=== PATIENT | female | born 1960 | race African-American/Black ===

== ENCOUNTER 2016-07-18 23:48 | Emergency (ER) | payer BC, OTHER ==
[2016-07-19] MEDS ORDERED: oxyCOD/ACETAMIN 5 MG/325 MG TABLET PO STA (00:38)
[2016-07-19] MEDS ORDERED: ONDANSETRON ODT 4 MG TABLET TL STA (00:38)
[2016-07-19] MEDS ORDERED: oxyCOD/ACETAMIN 5 MG/325 MG TABLET PO ONE (00:43)
[2016-07-19] MEDS ORDERED: ONDANSETRON ODT 4 MG TABLET ONE (00:44)
== END 2016-07-19 02:30 | disposition home or self-care (01) ==
DX: G43.109 Migraine with aura, not intractable, without status migrainosus (principal)
CPT/HCPCS: 70450; 99282; 99283; A9270; Q0162

== ENCOUNTER 2016-07-28 | Emergency (ER) | payer BC, OTHER | END 2016-07-28 21:13 | disposition home or self-care (01) ==

== ENCOUNTER 2017-09-09 20:04 | Emergency (ER) | payer BC, OTHER ==
--- NOTE | 2017-09-09 20:31 | ED Physician Documentation ---
PD HPI FOCAL NEURO - Stated complaint Stated Complaint: LT SIDE NUMBNESS - Chief complaint Chief Complaint: Neuro - History obtained from History obtained from: Patient - History of Present Illness Timing - onset: Enter time (07:00) Timing - duration: Hours Timing - details: Abrupt onset Severity of deficit: Mild Numbness: Arm, Hand, Leg, Foot, Right Associated symptoms: Headache (left-sided, resolved) Baseline status: positive: A&OX3, ambulatory, indep Similar symptoms before: Has not had sx before Recently seen: Not recently seen - Additional information Additional information: c/o LUE and LLE paresthesias since 7 AM Review of Systems Constitutional: reports: Reviewed and negative Eyes: reports: Reviewed and negative Cardiac: reports: Reviewed and negative Respiratory: reports: Reviewed and negative GI: reports: Reviewed and negative : denies: Dysuria, Frequency, Incontinent Neurologic: reports: Numbness (pareshthesias), 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 denies : Generalized weakness, Focal weakness, Confused, Altered mental status PD PAST MEDICAL HISTORY - Past Medical History Past Medical History: Yes Cardiovascular: None Respiratory: None Neuro: Headache/migraine Endocrine/Autoimmune: None - Past Surgical History Past Surgical History: Yes General: Cholecystectomy, Appendectomy - Present Medications Home Medications: Ambulatory Orders Medication Instructions Recorded Confirmed No Known Home Medications [No 07/19/16 09/09/17 Known Home Medications] - Allergies Allergies/Adverse Reactions: Allergies Allergy/AdvReac Type Severity Reaction Status Date / Time hydrocodone bitartrate * Allergy Unknown Verified 09/09/17 20:19 [From Vicodin] - Social History Does the pt smoke?: No Smoking Status: Never smoker Does the pt drink ETOH?: Yes Does the pt have substance abuse?: No - Immunizations Immunizations are current?: Yes - POLST Patient has POLST: No PD ED PE NORMAL - Vitals Vital signs reviewed: Yes - General General: Alert and oriented X 3, No acute distress, Well developed/nourished - HEENT HEENT: PERRL, EOMI, Moist mucous membranes - Neck Neck: Supple, no meningeal sign - Cardiac Cardiac: RRR, No murmur - Respiratory Respiratory: No respiratory distress, Clear bilaterally - Abdomen Abdomen: Normal bowel sounds, Soft, Non tender - Derm Derm: Normal color, Warm and dry, No rash - Extremities Extremities: No tenderness to palpate, Normal ROM s pain, No edema - Neuro Neuro: Alert and oriented X 3, branch service representative 2-12 intact, No motor deficit, No sensory deficit, Normal speech Eye Opening: Spontaneous Motor: Obeys Commands Verbal: Oriented GCS Score: 15 NIHSS - Level of Consciousness Level of consciousness: (0) Alert, Keenly responsive LOC Questions: (0) Answers both Q's correct LOC Commands: (0) Performs both correctly - Gaze Best Gaze: (0) Normal - Visual Visual: (0) No loss - Facial Palsy Facial Palsy: (0) Normal, symmetrical movement - Motor Arms (both separate) Motor Arm (right): (0) No drift Motor Arm (left): (0) No drift - Motor Legs (both separate) Motor Leg (right): (0) No drift Motor Leg (left): (0) No drift - Limb Ataxia Limb Ataxia: (0) Absent - Sensory Sensory: (0) Normal - Best Language Best Language: (0) No aphasia - Dysarthria Dysarthria: (0) Normal - Extinction and Inattention (formally neg Extinction and inattention: (0) No abnormality - Total Score/Results Total Score/Result: 0 Results - Vitals Vitals: Oxygen O2 Source Room air - Labs Labs: Laboratory Tests 09/09/17 09/09/17 09/09/17 21:00 21:00 21:00 WBC 7.0 RBC 4.20 Hgb 12.0 Hct 35.8 L MCV 85.2 MCH 28.7 MCHC 33.7 RDW 14.7 Plt Count 321 MPV 7.4 L Neut # 3.5 Lymph # 2.9 Tucker # 0.5 Eos # 0.1 Baso # 0.1 Absolute Nucleated RBC 0.01 Nucleated RBC % 0.1 Sodium 135 Potassium 3.4 L Chloride 102 Carbon Dioxide 25 Anion Gap 8.0 BUN 16 Creatinine 1.0 Estimated GFR (MDRD) 69 L Glucose 99 Calcium 8.9 Troponin I < 0.04 - Rads (name of study) CT head Radiology: Prelim report reviewed, See rad report PD MEDICAL DECISION MAKING - ED course Complexity details: reviewed results, re-evaluated patient, considered differential, d/w patient ED course: subjective paresthesiss on exam, with LTS intact and no significant difference right vs left. Departure - Departure Disposition: 01 Home, Self Care Clinical Impression: Paresthesias, Hypokalemia Condition: Good Instructions: ED Potassium Deficiency, ED Paraesthesias Follow-Up: Shahnaz Perea MD [Primary Care Provider] - Within 1 week Discharge Date/Time: 09/09/17 23:21
[2017-09-09 21:09] LABS: BASOPHILS # (AUTO) 0.1 10^3/uL (0.0-0.1); BASOPHILS % (AUTO) 1.2 %; EOSINOPHILS # (AUTO) 0.1 10^3/uL (0.0-0.7); EOSINOPHILS % (AUTO) 1.9 %; LYMPHOCYTES # (AUTO) 2.9 10^3/uL (1.5-3.5); LYMPHOCYTES % (AUTO) 40.7 %; MEAN CORPUSCULAR HEMOGLOBIN 28.7 pg (27.0-31.0); MEAN CORPUSCULAR HGB CONC 33.7 g/dL (32.0-36.0); MEAN CORPUSCULAR VOLUME 85.2 fL (81.0-99.0); MEAN PLATELET VOLUME 7.4 fL (7.9-10.8); MONOCYTES # (AUTO) 0.5 10^3/uL (0.0-1.0); MONOCYTES % (AUTO) 6.8 %; NEUTROPHILS # (AUTO) 3.5 10^3/uL (1.5-6.6); NEUTROPHILS % (AUTO) 49.4 %; PLT - PLATELET COUNT 321 10^3/uL (130-450); RED CELL DISTRIBUTION WIDTH 14.7 % (12.0-15.0)
--- NOTE | 2017-09-09 21:18 | CT Preliminary Report ---
Exam: CT HEAD W/O IMPRESSION: Negative nonenhanced head CT. [facility] SITE ID: [id number]
--- NOTE | 2017-09-09 21:19 | CT Report ---
EXAM: CT HEAD EXAM DATE: 09/09/2017 09:11 PM. CLINICAL HISTORY: Left-sided numbness. COMPARISON: None. TECHNIQUE: Multiaxial CT images were obtained from the foramen magnum to the vertex. Reformats: Coron al. IV contrast: None. In accordance with CT protocol optimization, one or more of the following dose reduction techniques w ere utilized for this exam: automated exposure control, adjustment of mA and/or KV based on patient s ize, or use of iterative reconstructive technique. FINDINGS: Parenchyma: No intraparenchymal hemorrhage. No evidence of mass, midline shift, or CT findings of inf arction. Mancera-white differentiation is distinct. Extraaxial Spaces: Normal for age. No subdural or epidural collections identified. Ventricles: Normal in size and position. Sinuses and Orbits: Imaged paranasal sinuses, orbits, and mastoids show no significant abnormality. Bones: No evidence of fracture or calvarial defect. Other: None. IMPRESSION: Negative nonenhanced head CT. [facility] Referring Provider Line: [phone] SITE ID: [id number]
[2017-09-09 21:20] LABS: CALCIUM 8.9 mg/dL (8.5-10.3)
[2017-09-09] MEDS ORDERED: POTASSIUM BICARB 25 MEQ TABLET PO STA (23:07)
[2017-09-09 23:13] VITALS: BP 132/78
== END 2017-09-09 23:21 | disposition home or self-care (01) ==
LOC: ED 20:04
DX: R20.0 Anesthesia of skin (principal); E87.6 Hypokalemia
CPT/HCPCS: 36415; 70450; 80048; 84484; 85025; 93005; 99284; A9270

== ENCOUNTER 2019-06-10 13:04 | Emergency (ER) | payer BC ==
[2019-06-10] MEDS ORDERED: KETOROLAC 60 MG/2 ML VIAL IM STA (13:57)
[2019-06-10] MEDS ORDERED: LIDOCAINE PATCH 5% TOP STA (13:57)
[2019-06-10] MEDS ORDERED: diazePAM INJ 5 MG/ML SYRINGE IM STA (13:57)
--- NOTE | 2019-06-10 14:06 | ED Physician Documentation ---
PD HPI BACK PAIN - Stated complaint Stated Complaint: LT SIDE BACK PX - Chief complaint Chief Complaint: Back Pain - History obtained from History obtained from: Patient - History of Present Illness Timing - onset: Today (just prior to arrival) Timing - duration: Hours (1.5) Timing - details: Abrupt onset Severity Comments: severe Location: Lower, Left Associated symptoms: No: Fever Improves with: Rest Worsened by: Movement Contributing factors: Lifting (she was bending down to lift boxes and felt her left lateral low back strain and then couldn't walk afterwards) Similar symptoms before: Diagnosis (hx of low back pain) Recently seen: Not recently seen - Treatment prior to arrival Treatment prior to arrival: none Review of Systems Ten Systems: 10 systems reviewed and negative Constitutional: denies: Fever Cardiac: denies: Chest pain / pressure Respiratory: denies: Dyspnea GI: denies: Abdominal Pain, Nausea, Vomiting : denies: Dysuria, Frequency, Unable to Void, Incontinent, Hematuria Musculoskeletal: reports: Back pain. denies: Extremity pain, Joint pain, Extremity swelling, Joint swelling Neurologic: denies: Generalized weakness, Focal weakness, Numbness Endocrine: reports: Reviewed and negative Immunocompromised: reports: Reviewed and negative PD PAST MEDICAL HISTORY - Past Medical History Past Medical History: Yes Cardiovascular: None Respiratory: None Endocrine/Autoimmune: None Musculoskeletal: Chronic back pain - Past Surgical History Past Surgical History: Yes General: Cholecystectomy, Appendectomy - Present Medications Home Medications: Ambulatory Orders Medication Instructions Recorded Confirmed Lidocaine Patch 5% [Lidoderm Patch] 1 patch TOP DAILY PRN #10 patch 06/10/19 diazePAM [Valium] 5 - 10 mg PO TID PRN #15 tablet 06/10/19 - Allergies Allergies/Adverse Reactions: Allergies Allergy/AdvReac Type Severity Reaction Status Date / Time hydrocodone bitartrate * Allergy Unknown Verified 06/10/19 13:14 [From Vicodin] - Social History Does the pt smoke?: No Smoking Status: Never smoker Does the pt drink ETOH?: Yes Does the pt have substance abuse?: No - Immunizations Immunizations are current?: Yes - POLST Patient has POLST: No PD ED PE NORMAL - Vitals Vital signs reviewed: Yes - General General: Alert and oriented X 3, No acute distress, Well developed/nourished - HEENT HEENT: Atraumatic, Moist mucous membranes - Neck Neck: Supple, no meningeal sign - Cardiac Cardiac: RRR - Respiratory Respiratory: No respiratory distress - Abdomen Abdomen: Soft, Non tender, Non distended - Female Female : Deferred - Rectal Rectal: Deferred - Derm Derm: Normal color, Warm and dry, No rash - Extremities Extremities: No deformity, No tenderness to palpate, Normal ROM s pain, No edema, No calf tenderness / cord - Neuro Neuro: Alert and oriented X 3, No motor deficit, No sensory deficit Eye Opening: Spontaneous Motor: Obeys Commands Verbal: Oriented GCS Score: 15 - Psych Psych: Normal mood, Normal affect PD ED PE EXPANDED - Back Back: Soft tissue tenderness, Other (pain with going from laying to sitting ). 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 She has no red flags for back pain - no hx of cancer, IVDA, no saddle anesthesias, no numbness/weakness, no incontinence, no fever. Given valium, toradol and lidoderm patches for back pain and will reassess. Pt markedly improved, she is able to ambulate around the ED. suspect low back strain. Do not feell that emergent labs or imaging are indicated at this time. Pt is stable for discharge with supportive care and return precautions if worsening. Departure - Departure Disposition: 01 Home, Self Care Clinical Impression: Low back strain Qualifiers: Encounter type: initial encounter Qualified Code(s): S39.012A - Strain of muscle, fascia and tendon of lower back, initial encounter Condition: Stable Record reviewed to determine appropriate education?: Yes Follow-Up: Shahnaz Perea MD [Primary Care Provider] - As Needed Prescriptions: diazePAM [Valium] 5 - 10 mg PO TID PRN #15 tablet PRN Reason: Spasms Lidocaine Patch 5% [Lidoderm Patch] 1 patch TOP DAILY PRN #10 patch PRN Reason: pain Comments: You were evaluated in the ED for low back pain. This is consistent with a muscle strain and spasm. You can continue ibuprofen and tylenol for pain, try heat and use the prescribed lidoderm patches. If pain is severe or spasming take the valium as a muscle relaxant (do not take this with flexerill - rather take this instead). Return to the ED if any weakness, numbness, incontinence or new concerning symptoms develop.
[2019-06-10 14:43] VITALS: BP 132/80
== END 2019-06-10 14:45 | disposition home or self-care (01) ==
LOC: ED 13:04
DX: S39.012A Strain of muscle, fascia and tendon of lower back, initial encounter (principal); X50.9XXA Other and unspecified overexertion or strenuous movements or postures, initial encounter; Y93.89 Activity, other specified
CPT/HCPCS: 96372; 99283; 99284; A9270

== ENCOUNTER 2020-02-22 07:28 | Emergency (ER) | payer BC ==
[2020-02-22] MEDS ORDERED: diphenhydrAMINE INJ 50 MG/ML VIAL IM STA (08:05)
[2020-02-22] MEDS ORDERED: PROMETHAZINE 25 MG/1 ML VIAL IM STA (08:05)
[2020-02-22] MEDS ORDERED: KETOROLAC 60 MG/2 ML VIAL IM STA (08:05)
--- NOTE | 2020-02-22 08:11 | ED Physician Documentation ---
PD HPI HEADACHE - Stated complaint Stated Complaint: HEADACHE - Chief complaint Chief Complaint: Neuro - History obtained from History obtained from: Patient - Additional information Additional information: Patient comes emergency department complaining of headache that started 3 evenings ago, now with nausea. Patient states that 5 days ago, she took a fall in which she accidentally stepped off a stair backwards, twisted during the fall, and landed on the linoleum floor, striking her chin. Patient did not lose consciousness. She states that she did not have any instantaneous headache or neck pain, and actually, was able to get up and go about her day without difficulty. Patient states that she was fine for 48 hours, and then on the evening of February 18, noticed a mild headache. Patient states she woke up the day afterward with a little more of a headache, which persisted through yesterday. This morning, the patient states that she still had the headache, but also had some nausea and vomiting. Patient states this is what prompted her to come in. She has a history of migraine headaches which come up occasionally. She has previously had some paresthesias with these, as well as visual auras. Patient denies any symptoms like this at this time. She states she does have some soreness in her neck laterally, mainly when she turns her head from side to side. Patient states her headache has not gotten worse over the last couple of days, but just has not gone away. The patient states she has had slight dizziness if she gets up too fast. She is not on anticoagulants. Patient denies any other symptoms of illness. No other complaints at this time. She states that her nausea is better now than it was earlier today. Review of Systems Ten Systems: 10 systems reviewed and negative Constitutional: reports: Reviewed and negative Eyes: reports: Reviewed and negative Ears: reports: Reviewed and negative Nose: reports: Reviewed and negative Throat: reports: Reviewed and negative Cardiac: reports: Reviewed and negative Respiratory: reports: Reviewed and negative GI: reports: Nausea, Vomiting : reports: Reviewed and negative Skin: reports: Reviewed and negative Musculoskeletal: reports: Neck pain Neurologic: reports: Headache. 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 HEENT: None Psych: Anxiety Musculoskeletal: Fibromyalgia, Chronic back pain Derm: None - Past Surgical History Past Surgical History: Yes General: Cholecystectomy, Appendectomy - Present Medications Home Medications: Ambulatory Orders Medication Instructions Recorded Confirmed Ondansetron Odt [Zofran] 4 mg TL Q6H PRN #10 tablet 02/22/20 - Allergies Allergies/Adverse Reactions: Allergies Allergy/AdvReac Type Severity Reaction Status Date / Time hydrocodone bitartrate * Allergy Unknown Verified 02/22/20 07:38 [From Vicodin] - Social History Does the pt smoke?: No Smoking Status: Former smoker Does the pt drink ETOH?: Yes Does the pt have substance abuse?: No - Immunizations Immunizations are current?: Yes - POLST Patient has POLST: No PD ED PE NORMAL - Vitals Vital signs reviewed: Yes - General General: Alert and oriented X 3 (Patient is very well-appearing, sitting up in bed, alert, conversing and moving without difficulty.), No acute distress, Well developed/nourished - HEENT HEENT: PERRL, EOMI, Moist mucous membranes, Other (No gross trauma. Patient has mild tenderness of the left anterior aspect of her chin without facial swelling or deformity. Full range of motion of mandible.) - Neck Neck: Supple, no meningeal sign, No bony TTP, Other (Tenderness over bilateral trapezius distribution. 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, No motor deficit, No sensory def icit, Normal speech - Psych Psych: Normal mood, Normal affect Results - Vitals Vitals: Vital Signs - 24 hr 02/22/20 02/22/20 07:38 07:50 Temperature 36.5 C Heart Rate 84 93 Respiratory 16 16 Rate Blood Pressure 168/87 H 186/93 H O2 Saturation 100 100 Oxygen O2 Source Room air PD MEDICAL DECISION MAKING - ED course Complexity details: reviewed old records, considered differential, d/w patient ED course: I discussed with the patient that I do not find evidence of intracranial hemorrhage, and the patient's injury is lower risk for this in terms of injuries above the neck. The patient does not have any spinal tenderness, either, and I do not suspect a C-spine fracture at this time. I did give the patient the option of IV fluids and medication versus IM treatment versus p.o. Patient's nausea was better but still mildly present and so she did opt for IM treatment, and was given Toradol, Phenergan, and Benadryl. I discussed with her that she may have a mild concussion, and we have discussed the symptoms that can be associated with this. We have discussed the usual indications for return. Departure - Departure Disposition: 01 Home, Self Care Clinical Impression: Headache Qualifiers: Headache type: unspecified Headache chronicity pattern: acute headache Intractability: not intractable Qualified Code(s): R51 - Headache Closed head injury Qualifiers: Encounter type: initial encounter Qualified Code(s): S09.90XA - Unspecified injury of head, initial encounter Condition: Stable Instructions: ED Head Injury Closed, ED Cephalgia Unspecified, ED Headache Migraine Prescriptions: Ondansetron Odt [Zofran] 4 mg TL Q6H PRN #10 tablet PRN Reason: Nausea / Vomiting Forms: Activity restrictions
[2020-02-22 08:37] VITALS: BP 158/83
== END 2020-02-22 08:37 | disposition home or self-care (01) ==
LOC: ED 07:28
DX: R51 Headache (principal); M54.2 Cervicalgia; S09.90XA Unspecified injury of head, initial encounter; W10.9XXA Fall (on) (from) unspecified stairs and steps, initial encounter; Z87.891 Personal history of nicotine dependence
CPT/HCPCS: 96372; 99283; 99284; J1200

== ENCOUNTER 2021-02-23 22:41 | Emergency (ER) | payer BC ==
--- NOTE | 2021-02-23 23:16 | ED Physician Documentation ---
History of Present Illness - Stated complaint Stated Complaint: HIGH BP - Chief complaint Chief Complaint: General - History obtained from History obtained from: Patient - History of Present Illness Timing: Today Pain level max: 0 Pain level now: 0 - Additonal information Additional information: presents with asymptomatic hypertension. she has been having high blood pressure readings for well over a month now, always without symptoms, and approximately one month ago she was started on Procardia xl 30 mg PO QAM. She says she was getting good BP control with this, readings averaging around 120s/60s. However, her blood pressure readings were high yesterday and she saw her PMD. The readings were not high enough to prompt change in her medications/dosing, and it was thought perhaps there was an element of white-coat hypertension. Patient was feeling achy earlier today and thus took a dose of OTC medication for her fibromyalgia. Tonight she felt a fullness in her head, prompting her to take her BP and had reading of 200/77. She was alarmed by this and thus came to ED. She notes that as she was leaving, she rechecked the BP and it was 166/72, and on arrival to ED it was 158/82. She is asymptomatic with these readings excepting for the mild fullness sensation in her head when the BP was at its highest. denies chest pain , denies dyspnea. She brings up the fibromyalgia pill because it was the first time she had taken it in over a month, roughly as long as she has been on the antihypertensive. 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 : None HEENT: None Psych: Anxiety Musculoskeletal: Fibromyalgia, Chronic back pain Derm: None - Past Surgical History Past Surgical History: Yes General: Cholecystectomy, Appendectomy - Present Medications Home Medications: Ambulatory Orders Medication Instructions Recorded Confirmed Cholestyramine [Questran] 4 gm PO DAILY 02/23/21 02/23/21 EPINEPHrine [Epinephrine] 0.3 mg IJ PRN PRN 02/23/21 02/23/21 Nicardipine HCl 30 mg PO DAILY 02/23/21 02/23/21 - Allergies Allergies/Adverse Reactions: Allergies Allergy/AdvReac Type Severity Reaction Status Date / Time hydrocodone bitartrate * Allergy Unknown Verified 02/23/21 22:55 [From Vicodin] - Social History Does the pt smoke?: No Smoking Status: Never smoker Does the pt drink ETOH?: Yes Does the pt have substance abuse?: No - Immunizations Immunizations are current?: Yes - POLST Patient has POLST: No PD ED PE NORMAL - Vitals Vital signs reviewed: Yes - General General: Alert and oriented X 3, No acute distress, Well developed/nourished - HEENT HEENT: PERRL, EOMI - Neck Neck: Supple, no meningeal sign - Cardiac Cardiac: RRR, No murmur, No gallop, No rub - Respiratory Respiratory: No respiratory distress, Clear bilaterally - Abdomen Abdomen: Soft, Non tender - Neuro Neuro: Alert and oriented X 3, 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 She wonders if it has to do with the fibromyalgia pill she took; in reading off the ingredients to me, I noted two concerning ingredients would be salt and licorice root (in regards to blood pressure), although I question whether the amounts would actually cause any changes in blood pressure. I advised her to avoid this OTC medication for now and encouraged her to ask her primary care provider if they think this medication might interfere with blood pressure control. As for her blood pressures, they were mostly 150s/70s-80s during ED stay, illustrative of how spikes in blood pressure often need some brief time to improve without intervention. I explained to her the concept of causing problems both by ignoring high blood pressures as well as overaggressive treatment leading to low blood pressures. I explained that blood pressures tend to be higher than normal during an ED stay and more towards baseline when involved in more typical daily activity. My advice was to discharge home and for her to recontact her primary care provider to reevaluate her antihypertensive medication (increasing dose? allowing for second dose for certain parameters? etc). Seeing how she is on low-dose, I provided her parameters to use that would allow for a second dose (or double dose, if she is due for a dose in the AM). Departure - Departure Disposition: Home, Self Care Clinical Impression: Hypertension Qualifiers: Hypertension type: unspecified Qualified Code(s): I10 - Essential (primary) hypertension Condition: Good Instructions: ED Hypertension Conf Out Of Control Follow-Up: Shahnaz Perea MD [Primary Care Provider] - Comments: As we discussed, your blood pressures are gradually improving since the concerning reading you had at home of over 200 (systolic blood pressure). No testing is indicated at this time. If your blood pressure at home is over 160 systolic or 100 diastolic (on two readings at least 15 minutes apart), take 60mg of your procardia instead of 30 if you are due for a dose. If you already have taken your procardia that day and you have readings this high, you can take another dose of 30mg procardia. Call your primary care provider in the morning to arrange follow up. Discharge Date/Time: 02/23/21 23:52
[2021-02-23 23:37] VITALS: BP 156/89
== END 2021-02-23 23:52 | disposition home or self-care (01) ==
LOC: ED 22:41
DX: I10 Essential (primary) hypertension (principal); M79.7 Fibromyalgia
CPT/HCPCS: 99281; 99282

== ENCOUNTER 2021-07-05 12:37 | Emergency (ER) | payer BC | END 2021-07-05 14:00 | disposition left against medical advice (07) | LOC: ED 12:37 | DX: Z53.21 Procedure and treatment not carried out due to patient leaving prior to being seen by health care provider (principal) ==

== ENCOUNTER 2021-07-18 08:00 | Outpatient (CLI) | payer BC ==
[2021-07-18 20:03] LABS: BILIRUBIN,URINE NEGATIVE (NEGATIVE); CLARITY,URINE CLEAR (CLEAR); GLUCOSE, URINE (UA) NEGATIVE (NEGATIVE); KETONES,URINE (UA) NEGATIVE (NEGATIVE); LEUKOCYTE ESTERASE, URINE NEGATIVE (NEGATIVE); NITRITE,URINE NEGATIVE (NEGATIVE); OCCULT BLOOD,URINE NEGATIVE (NEGATIVE); PROTEIN,URINE NEGATIVE (NEGATIVE); UROBILINOGEN,URINE 0.2 (NORMAL) E.U./dL (NORMAL)
[2021-07-18 20:14] LABS: RBC,URINE None Seen /HPF (0-5); SQUAMOUS EPITHELIAL CELL,UR NONE SEEN (<= Few); WBC,URINE 0-3 /HPF (0-5)
[2021-07-18 20:15] LABS: BACTERIA,URINE None Seen /HPF (None Seen)
== END 2021-07-18 23:59 | disposition home or self-care (01) ==
LOC: LAB.S 08:00
PROVIDERS: ATTEND Emergency Medicine
DX: R35.89 Other polyuria (principal)
CPT/HCPCS: 81001; 87086

== ENCOUNTER 2021-07-30 21:25 | Emergency (ER) | payer BC ==
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
[2021-07-30 22:30] LABS: BASOPHILS % (AUTO) 0.5 %; EOSINOPHILS # (AUTO) 0.1 10^3/uL (0.0-0.7); EOSINOPHILS % (AUTO) 0.9 %; HCT - HEMATOCRIT 41.9 % (37.0-47.0); HGB - HEMOGLOBIN 13.8 g/dL (12.0-16.0); LYMPHOCYTES # (AUTO) 2.7 10^3/uL (1.5-3.5); LYMPHOCYTES % (AUTO) 41.2 %; MEAN CORPUSCULAR HEMOGLOBIN 28.6 pg (27.0-31.0); MEAN CORPUSCULAR HGB CONC 32.9 g/dL (32.0-36.0); MEAN CORPUSCULAR VOLUME 86.7 fL (81.0-99.0); MEAN PLATELET VOLUME 9.5 fL (7.9-10.8); MONOCYTES # (AUTO) 0.4 10^3/uL (0.0-1.0); MONOCYTES % (AUTO) 6.6 %; NEUTROPHILS # (AUTO) 3.3 10^3/uL (1.5-6.6); NEUTROPHILS % (AUTO) 50.5 %; PLT - PLATELET COUNT 303 10^3/uL (130-450); RED BLOOD COUNT 4.83 10^6/uL (4.20-5.40); RED CELL DISTRIBUTION WIDTH 13.8 % (12.0-15.0); WHITE BLOOD COUNT 6.6 x10^3/uL (4.8-10.8)
[2021-07-30 22:44] LABS: ALBUMIN 4.4 g/dL (3.2-5.5); ALBUMIN/GLOBULIN RATIO 1.1 (1.0-2.2); BILIRUBIN,TOTAL 0.2 mg/dL (0.2-1.0); CALCIUM 9.3 mg/dL (8.5-10.3); CREATININE 0.7 mg/dL (0.4-1.0); POTASSIUM 3.5 mmol/L (3.5-5.0); TOTAL PROTEIN 8.4 g/dL (6.7-8.2)
--- NOTE | 2021-07-30 23:02 | CT Report ---
PROCEDURE: HEAD WO INDICATIONS: headache, disorientation TECHNIQUE: Noncontrast 4.5 mm thick angled axial sections acquired from the foramen magnum to the vertex. For r adiation dose reduction, the following was used: automated exposure control, adjustment of mA and/or kV according to patient size. COMPARISON: None. FINDINGS: Image quality: Excellent. CSF spaces: Basal cisterns are patent. No extra-axial fluid collections. Ventricles are normal in size and shape. Brain: No midline shift. No intracranial masses or hemorrhage. Mancera-white matter interface is norm al. Skull and face: Calvarium and visualized facial bones are intact, without suspicious lesions. Sinuses: Visualized sinuses and mastoids are clear. IMPRESSION: 1. No acute intracranial process. Reviewed by: Nani Howard MD on 07/30/2021 11:00 PM [facility] Approved by: Nani Howard MD on 07/30/2021 11:00 PM [facility] Station ID: [id number]
[2021-07-30 23:48] VITALS: BP 134/68
== END 2021-07-30 23:48 | disposition home or self-care (01) ==
LOC: ED 21:25
DX: R51.9 Headache, unspecified (principal); R20.2 Paresthesia of skin; R41.0 Disorientation, unspecified
CPT/HCPCS: 36415; 80053; 83690; 85025; 99283; 99284

== ENCOUNTER 2022-03-22 01:01 | Emergency (ER) | payer BC ==
[2022-03-22] MEDS ORDERED: SODIUM CHLORIDE 0.9% 500 ML IV STA (01:24)
[2022-03-22 01:35] LABS: BASOPHILS % (AUTO) 0.3 %; EOSINOPHILS # (AUTO) 0.1 10^3/uL (0.0-0.7); EOSINOPHILS % (AUTO) 0.8 %; HCT - HEMATOCRIT 40.8 % (37.0-47.0); HGB - HEMOGLOBIN 13.9 g/dL (12.0-16.0); LYMPHOCYTES # (AUTO) 1.3 10^3/uL (1.5-3.5); MEAN CORPUSCULAR HEMOGLOBIN 29.2 pg (27.0-31.0); MEAN CORPUSCULAR HGB CONC 34.1 g/dL (32.0-36.0); MEAN CORPUSCULAR VOLUME 85.7 fL (81.0-99.0); MEAN PLATELET VOLUME 8.9 fL (7.9-10.8); MONOCYTES # (AUTO) 0.5 10^3/uL (0.0-1.0); MONOCYTES % (AUTO) 5.1 %; NEUTROPHILS # (AUTO) 7.4 10^3/uL (1.5-6.6); NEUTROPHILS % (AUTO) 79.6 %; PLT - PLATELET COUNT 327 10^3/uL (130-450); RED BLOOD COUNT 4.76 10^6/uL (4.20-5.40); RED CELL DISTRIBUTION WIDTH 14.1 % (12.0-15.0); WHITE BLOOD COUNT 9.2 x10^3/uL (4.8-10.8)
[2022-03-22 01:45] LABS: ALBUMIN 4.4 g/dL (3.2-5.5); ALBUMIN/GLOBULIN RATIO 1.1 (1.0-2.2); BILIRUBIN,TOTAL 0.5 mg/dL (0.2-1.0); CALCIUM 9.4 mg/dL (8.5-10.3); CREATININE 0.8 mg/dL (0.4-1.0); POTASSIUM 3.7 mmol/L (3.5-5.0); TOTAL PROTEIN 8.4 g/dL (6.7-8.2)
[2022-03-22 02:07] LABS: BILIRUBIN,URINE NEGATIVE (NEGATIVE); CLARITY,URINE CLEAR (CLEAR); GLUCOSE, URINE (UA) NEGATIVE (NEGATIVE); KETONES,URINE (UA) NEGATIVE (NEGATIVE); LEUKOCYTE ESTERASE, URINE TRACE (NEGATIVE); NITRITE,URINE NEGATIVE (NEGATIVE); OCCULT BLOOD,URINE TRACE-INTA (NEGATIVE); PROTEIN,URINE NEGATIVE (NEGATIVE); UROBILINOGEN,URINE 0.2 (NORMAL) E.U./dL (NORMAL)
[2022-03-22 02:17] LABS: BACTERIA,URINE Rare /HPF (None Seen); RBC,URINE 0-5 /HPF (0-5); SQUAMOUS EPITHELIAL CELL,UR FEW Squamous (<= Few); WBC,URINE 0-3 /HPF (0-5)
[2022-03-22] MEDS ORDERED: PANTOPRAZOLE 40 MG TABLET PO STA (02:31)
--- NOTE | 2022-03-22 02:33 | ED Physician Documentation ---
PD HPI ABD PAIN - Stated complaint Stated Complaint: STOMACH PX - Chief complaint Chief Complaint: Abd Pain - History obtained from History obtained from: Patient - Additional information Additional information: Patient is a 61-year-old female with a history of IBS and multiple previous abdominal surgeries presenting for evaluation of epigastric pain and cramping that started around 11 PM. It has persisted but has lessened and felt better after having a bowel movement. She denies nausea, vomiting, chest pain or difficulty breathing. She denies dysuria, hematuria or radiation to the back.She denies eating anything that she can think of in the last day that would have triggered her symptoms.She continues to Feel a dull ache. Review of Systems Constitutional: denies: Fever Nose: denies: Congestion Cardiac: denies: Chest pain / pressure Respiratory: denies: Dyspnea, Cough GI: reports: Abdominal Pain. 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 MANAGER SHIFT: None : None HEENT: None Psych: Anxiety Musculoskeletal: Fibromyalgia, Chronic back pain Derm: None - Past Surgical History Past Surgical History: Yes General: Cholecystectomy, Appendectomy - Present Medications Home Medications: Ambulatory Orders Medication Instructions Recorded Confirmed Cholestyramine [Questran] 4 gm PO DAILY 02/23/21 12/02/21 EPINEPHrine [Epinephrine] 0.3 mg IJ PRN PRN 02/23/21 12/02/21 Amlodipine Besylate [Norvasc] 2.5 mg PO DAILY 12/02/21 12/02/21 Omeprazole 40 mg PO DAILY #30 cap 12/02/21 - Allergies Allergies/Adverse Reactions: Allergies Allergy/AdvReac Type Severity Reaction Status Date / Time hydrocodone bitartrate * Allergy Unknown Verified 03/22/22 01:11 [From Vicodin] - Social History Does the pt smoke?: No Smoking Status: Never smoker Does the pt drink ETOH?: Yes Does the pt have substance abuse?: No - Immunizations Immunizations are current?: Yes - POLST Patient has POLST: No PD ED PE NORMAL - General General: Alert and oriented X 3, No acute distress, Well developed/nourished - HEENT HEENT: Atraumatic, Moist mucous membranes - Neck Neck: Supple, no meningeal sign - Cardiac Cardiac: RRR, No murmur, Strong equal pulses - Respiratory Respiratory: No respiratory distress, Clear bilaterally - Abdomen Abdomen: Normal bowel sounds, Soft, Non distended, Other (Mild left upper quadrant tenderness to palpation, no rebound, no guarding, multiple keloids around the surgical incision sites) - Derm Derm: Warm and dry - Extremities Extremities: No edema - Neuro Neuro: Normal speech Results - Vitals Vitals: Vital Signs - 24 hr 03/22/22 03/22/22 01:11 02:41 Temperature 37 C 37 C Heart Rate 93 78 Respiratory 19 17 Rate Blood Pressure 175/80 H 143/79 H O2 Saturation 99 99 Oxygen O2 Source Room air - EKG (time done) 0127 Rate: Rate (enter#) (84) Rhythm: NSR Ischemia: No: ST elevation c/w ischemia - Labs Labs: Laboratory Tests 03/22/22 03/22/22 03/22/22 01:15 01:29 01:29 WBC 9.2 RBC 4.76 Hgb 13.9 Hct 40.8 MCV 85.7 MCH 29.2 MCHC 34.1 RDW 14.1 Plt Count 327 MPV 8.9 Neut # (Auto) 7.4 H Lymph # (Auto) 1.3 L [place] # (Auto) 0.5 Eos # (Auto) 0.1 Baso # (Auto) 0.0 Absolute Nucleated RBC 0.00 Nucleated RBC % 0.0 Sodium 136 Potassium 3.7 Chloride 100 L Carbon Dioxide 27 Anion Gap 9.0 BUN 13 Creatinine 0.8 Estimated GFR (MDRD) 88 L Glucose 112 H Calcium 9.4 Total Bilirubin 0.5 AST 26 ALT 17 Alkaline Phosphatase 97 Total Protein 8.4 H Albumin 4.4 Globulin 4.0 Albumin/Globulin Ratio 1.1 Lipase 54 H Urine Color YELLOW Urine Clarity CLEAR Urine pH 6.0 Ur Specific Mayer 1.020 Urine Protein NEGATIVE Urine Glucose (UA) NEGATIVE Urine Ketones NEGATIVE Urine Occult Blood TRACE-INTA Urine Nitrite NEGATIVE Urine Bilirubin NEGATIVE Urine Urobilinogen 0.2 (NORMAL) Ur Leukocyte Esterase TRACE H Urine RBC 0-5 Urine WBC 0-3 Ur Squamous Epith Cells FEW Squamous Urine Bacteria Rare Ur Microscopic Review INDICATED Urine Culture Comments INDICATED PD MEDICAL DECISION MAKING - ED course Complexity details: reviewed results, re-evaluated patient, d/w patient ED course: Patient presenting for evaluation of left upper quadrant pain. Has mild tenderness on initial exam which quickly improved on repeat exam. Labs are overall reassuring and vital signs are stable. Patient is feeling much better with just IV fluids. At this time we will hold off on imaging as her exam and symptoms have quickly improved. Doubt ACS. EKG is reassuring. Patient has no chest pain or difficulty breathing. 0215 - Reviewed labs. Patient reports feeling much better and would like to go home. Willing to try dose of pantoprazole. On repeat abdominal exam she has minimal left upper quadrant tenderness again with no rebound or guarding and appears improved from previous exam. As exam has improved and labs are overall reassuring, feel it is reasonable to hold all imaging. Patient understands she can return at any time if her symptoms return. Departure - Departure Disposition: 01 Home, Self Care Clinical Impression: Epigastric abdominal pain Condition: Stable Instructions: ED Abdominal Pain Female Non-Specific Abdominal Pain, ED Epigastric Pain UKO Comments: You were evaluated for upper abdominal pain. The exact cause of your symptoms is unclear but it does appear that your symptoms have quickly improved. Your labs were overall reassuring. At this point I feel it is reasonableTo hold off on imaging As you are feeling much better. If your symptoms return or you have any worsening symptoms please return to the emergency department. Otherwise please make a follow-up appointment with your GI doctor as you may need further testing such as an upper endoscopy.
[2022-03-22 02:43] VITALS: BP 143/79
== END 2022-03-22 02:41 | disposition home or self-care (01) ==
LOC: ED 01:01
DX: R10.13 Epigastric pain (principal)
CPT/HCPCS: 36415; 80053; 81001; 83690; 85025; 87086; 93005; 96360; 99282; 99284; A9270; 81003

== ENCOUNTER 2022-06-14 22:02 | Emergency (ER) | payer BC ==
[2022-06-14 22:11] VITALS: BP 176/76
[2022-06-14] MEDS ORDERED: guaiFENesin 600 MG TABLET PO STA (22:36)
--- NOTE | 2022-06-14 22:39 | ED Physician Documentation ---
PD HPI URI - Stated complaint Stated Complaint: COLD SYMPTOMS - Chief complaint Chief Complaint: Heent - History obtained from History obtained from: Patient - Additional information Additional information: 61-year-old woman with history of goiter and hypertension presents with 2 weeks of a cold. It is marked by hoarse voice without sore throat and nasal congestion without sinus pain. No fevers. No cough or chest congestion. No known sick contacts. Review of Systems Constitutional: denies: Fever, Chills, Myalgias, Fatigue Nose: reports: Rhinorrhea / runny nose, Congestion. 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: None : None HEENT: None Psych: Anxiety Musculoskeletal: Fibromyalgia, Chronic back pain Derm: None - Past Surgical History Past Surgical History: Yes General: Cholecystectomy, Appendectomy - Present Medications Home Medications: Ambulatory Orders Medication Instructions Recorded Confirmed Cholestyramine [Questran] 4 gm PO DAILY 02/23/21 12/02/21 EPINEPHrine [Epinephrine] 0.3 mg IJ PRN PRN 02/23/21 12/02/21 Amlodipine Besylate [Norvasc] 2.5 mg PO DAILY 12/02/21 12/02/21 Omeprazole 40 mg PO DAILY #30 cap 12/02/21 - Allergies Allergies/Adverse Reactions: Allergies Allergy/AdvReac Type Severity Reaction Status Date / Time hydrocodone bitartrate * Allergy Unknown Verified 06/14/22 22:11 [From Vicodin] - Social History Does the pt smoke?: No Smoking Status: Never smoker Does the pt drink ETOH?: Yes Does the pt have substance abuse?: No - Immunizations Immunizations are current?: Yes - POLST Patient has POLST: No PD ED PE NORMAL - Vitals Vital signs reviewed: Yes - General General: Alert and oriented X 3, No acute distress - HEENT HEENT: PERRL, EOMI, Ears normal, Pharynx benign, Other (Slightly laryngitic voice) - Neck Neck: Supple, no meningeal sign, No bony TTP - Neuro Neuro: Alert and oriented X 3, Normal speech - Psych Psych: Normal mood, Normal affect Results - Vitals Vitals: Vital Signs - 24 hr 06/14/22 22:06 Temperature 36.8 C Heart Rate 100 Respiratory 16 Rate Blood Pressure 176/76 H O2 Saturation 99 Oxygen O2 Source Room air PD MEDICAL DECISION MAKING - ED course ED course: 61-year-old woman viral URI, given the time course this is likely RSV, given symptomatic management and discussed that there is no evidence of bacterial superinfection. Departure - Departure Disposition: 01 Home, Self Care Clinical Impression: Viral URI Condition: Good Record reviewed to determine appropriate education?: Yes Instructions: ED URI Viral Comments: You have a [email or web address] respiratory panel pending. This checks for a number of respiratory viruses including flu and COVID, but as discussed I find it more likely that you will have RSV or human metapneumovirus based on your symptomatol ogy. You can take Mucinex and Nasonex or Flonase available [id number]. Return for new or worsening symptoms. Follow-up with your doctor if not better in the next couple weeks, but I do expect you to improve albeit possibly slowly if it is RSV. You can check the results of the [facility] respiratory panel on the patient portal. We will call if it is COVID.
[2022-06-15 00:20] LABS: B. PARAPERTUSSIS- RESP PCR PAN NOT DETECTED; B. PERTUSSIS- RESP PCR PANEL NOT DETECTED; C. PNEUMONIAE- RESP PCR PANEL NOT DETECTED; CORONAVIRUS 229E-RESP PCR NOT DETECTED; CORONAVIRUS HKU1-RESP PCR NOT DETECTED; CORONAVIRUS NL63-RESP PCR NOT DETECTED; CORONAVIRUS OC43-RESP PCR NOT DETECTED; HUMAN METAPNEUMOVIRUS NOT DETECTED; INFLUENZA A- RESP PCR PANEL NOT DETECTED; INFLUENZA B - RESP PCR PANEL NOT DETECTED; M. PNEUMONIAE- RESP PCR PANEL NOT DETECTED; PARAINFLUENZA VIRUS 1 NOT DETECTED; PARAINFLUENZA VIRUS 2 NOT DETECTED; PARAINFLUENZA VIRUS 3 NOT DETECTED; PARAINFLUENZA VIRUS 4 NOT DETECTED; RHINOVIRUS/ENTEROVIRUS NOT DETECTED; RSV- RESP PCR PANEL NOT DETECTED; SARS-CoV-2 -RESP PCR PANEL NOT DETECTED
== END 2022-06-14 23:00 | disposition home or self-care (01) ==
LOC: ED 22:02
DX: J06.9 Acute upper respiratory infection, unspecified (principal); Z20.822 Contact with and (suspected) exposure to COVID-19
CPT/HCPCS: 87633; 99282; 99283; A9270

== ENCOUNTER 2022-11-18 19:34 | Emergency (ER) | payer BC ==
--- NOTE | 2022-11-18 20:08 | XRAY Report ---
PROCEDURE: Chest 1 View X-Ray INDICATIONS: Chest Pain TECHNIQUE: One view of the chest was acquired. COMPARISON: None. FINDINGS: Surgical changes and devices: None. Lungs and pleura: No pleural effusions or pneumothorax. Lungs are clear. Mediastinum: Mediastinal contours appear normal. Heart size is normal. Bones and chest wall: No suspicious bony lesions. Overlying soft tissues appear unremarkable. IMPRESSION: No acute cardiopulmonary disease. Reviewed by: Sharath Grossman MD on 11/18/2022 8:07 PM PDT Approved by: Sharath Grossman MD on 11/18/2022 8:07 PM PDT Station ID: [id number]
[2022-11-18 20:22] LABS: BASOPHILS % (AUTO) 0.6 %; EOSINOPHILS # (AUTO) 0.1 10^3/uL (0.0-0.7); EOSINOPHILS % (AUTO) 1.6 %; HCT - HEMATOCRIT 42.2 % (37.0-47.0); HGB - HEMOGLOBIN 13.6 g/dL (12.0-16.0); LYMPHOCYTES # (AUTO) 2.9 10^3/uL (1.5-3.5); LYMPHOCYTES % (AUTO) 40.9 %; MEAN CORPUSCULAR HEMOGLOBIN 27.4 pg (27.0-31.0); MEAN CORPUSCULAR HGB CONC 32.2 g/dL (32.0-36.0); MEAN CORPUSCULAR VOLUME 85.1 fL (81.0-99.0); MEAN PLATELET VOLUME 9.3 fL (7.9-10.8); MONOCYTES # (AUTO) 0.5 10^3/uL (0.0-1.0); MONOCYTES % (AUTO) 7.4 %; NEUTROPHILS # (AUTO) 3.5 10^3/uL (1.5-6.6); NEUTROPHILS % (AUTO) 49.4 %; PLT - PLATELET COUNT 376 10^3/uL (130-450); RED BLOOD COUNT 4.96 10^6/uL (4.20-5.40); RED CELL DISTRIBUTION WIDTH 14.6 % (12.0-15.0); WHITE BLOOD COUNT 7.1 x10^3/uL (4.8-10.8)
[2022-11-18 20:40] LABS: ALBUMIN 4.2 g/dL (3.2-5.5); BILIRUBIN,TOTAL 0.3 mg/dL (0.2-1.0); CALCIUM 9.1 mg/dL (8.5-10.3); CREATININE 0.9 mg/dL (0.4-1.0); TOTAL PROTEIN 8.6 g/dL (6.7-8.2)
[2022-11-18] MEDS ORDERED: SODIUM CHLORIDE 0.9% 1,000 ML IV STA (20:43)
[2022-11-18] MEDS ORDERED: POTASSIUM CHLORIDE 20 MEQ TABLET PO STA (20:43)
--- NOTE | 2022-11-18 21:52 | ED Physician Documentation ---
History of Present Illness - Stated complaint Stated Complaint: HEART PX - Chief complaint Chief Complaint: Cardiac - History obtained from History obtained from: Patient - Additonal information Additional information: Patient is a 62-year-old female presenting for evaluation of palpitations that started around 7:00 when she had gotten out of the shower. Patient states that it felt like her heart was pounding and that her pulse in her neck was also pounding. She denies associated dizziness, lightheadedness, chest pain or shortness of breath.She states her symptoms lasted maybe an hour and then have since resolved and have not recurred. She does report feeling like she has been exerting herself more here recently with moving around furniture at home as they were having work done in their home. She denies recent illness. Again she denies recent episodes of chest pain and does not feel dizzy or lightheaded. Review of Systems Constitutional: denies: Fever Cardiac: reports: Palpitations. denies: Chest pain / pressure Respiratory: denies: Dyspnea, Cough GI: denies: Abdominal Pain, Vomiting : denies: Dysuria Musculoskeletal: denies: Back pain Neurologic: denies: Generalized weakness, Syncope PD PAST MEDICAL HISTORY - Past Medical History Cardiovascular: None Respiratory: None Neuro: Migraines Endocrine/Autoimmune: None GI: GERD, Other LEGISLATORS: None : None HEENT: None Psych: Anxiety Musculoskeletal: Fibromyalgia, Chronic back pain Derm: None - Past Surgical History Past Surgical History: Yes General: Cholecystectomy, Appendectomy /LEGISLATORS: Tubal ligation, Other - Present Medications Home Medications: Ambulatory Orders Medication Instructions Recorded Confirmed Olmesartan Medoxomil [Benicar] 20 mg PO DAILY 06/14/22 06/14/22 - Allergies Allergies/Adverse Reactions: Allergies Allergy/AdvReac Type Severity Reaction Status Date / Time hydrocodone bitartrate * Allergy Unknown Verified 11/18/22 19:48 [From Vicodin] - Social History Does the pt smoke?: No Smoking Status: Never smoker Does the pt drink ETOH?: Yes Does the pt have substance abuse?: No - Immunizations Immunizations are current?: Yes - POLST Patient has POLST: No PD ED PE NORMAL - General General: Alert and oriented X 3, No acute distress, Well developed/nourished - HEENT HEENT: Atraumatic - Neck Neck: Supple, no meningeal sign - Cardiac Cardiac: RRR, No murmur, Strong equal pulses - Respiratory Respiratory: No respiratory distress, Clear bilaterally - Abdomen Abdomen: Soft, Non tender - Derm Derm: Warm and dry - Extremities Extremities: No edema, No calf tenderness / cord - Neuro Neuro: Normal speech Results - Vitals Vitals: Vital Signs - 24 hr 11/18/22 11/18/22 11/18/22 19:43 19:48 21:54 Temperature 36.6 C Heart Rate 89 84 64 Respiratory 22 19 16 Rate Blood Pressure 161/83 H 144/70 H 110/55 L O2 Saturation 99 100 100 Oxygen O2 Source Room air - EKG (time done) 1949 EKG releavant findings:: EKG personally interpreted by author of this note. Relevant findings are: Rate 83, normal sinus rhythm, no STEMI, no ST depressions, QTc 422 Rate: Rate (enter#) (83) Rhythm: NSR Intervals: No: Prolonged QT Ischemia: No: ST elevation c/w ischemia - Labs Labs: Laboratory Tests 11/18/22 11/18/22 11/18/22 20:13 20:13 20:13 WBC 7.1 RBC 4.96 Hgb 13.6 Hct 42.2 MCV 85.1 MCH 27.4 MCHC 32.2 RDW 14.6 Plt Count 376 MPV 9.3 Neut # (Auto) 3.5 Lymph # (Auto) 2.9 [place] # (Auto) 0.5 Eos # (Auto) 0.1 Baso # (Auto) 0.0 Absolute Nucleated RBC 0.00 Nucleated RBC % 0.0 Sodium 139 Potassium 3.0 L Chloride 94 L Carbon Dioxide 28 Anion Gap 17.0 H BUN 15 Creatinine 0.9 Estimated GFR (MDRD) 77 L Glucose 109 H Calcium 9.1 Total Bilirubin 0.3 AST 25 ALT 18 Alkaline Phosphatase 89 Troponin I High Sens < 2.3 L Total Protein 8.6 H Albumin 4.2 Globulin 4.4 H Albumin/Globulin Ratio 1.0 Lipase 79 H TSH 11/18/22 20:13 WBC RBC Hgb Hct MCV MCH MCHC RDW Plt Count MPV Neut # (Auto) Lymph # (Auto) [place] # (Auto) Eos # (Auto) Baso # (Auto) Absolute Nucleated RBC Nucleated RBC % Sodium Potassium Chloride Carbon Dioxide Anion Gap BUN Creatinine Estimated GFR (MDRD) Glucose Calcium Total Bilirubin AST ALT Alkaline Phosphatase Troponin I High Sens Total Protein Albumin Globulin Albumin/Globulin Ratio Lipase TSH 2.58 PD Medical Decision Making - ED course Complexity details: reviewed results, re-evaluated patient, d/w patient ED course: Patient presenting for evaluation of palpitations. EKG demonstrates a normal sinus rhythm. No irregular rhythms noted on the night monitor. Patient is asymptomatic here. Vital signs appear stable. Never had any chest pain Or shortness of breath. No symptoms to suggest ACS or PE. CBC, chemistry, troponin and TSH were obtained and reviewed. She does have low potassium and chloride noted on Labs. She was given IV fluids and p.o. Zofran which she tolerated well. She has remained asymptomatic throughout her ED course. She was counseled on need for continued hydration and proper oral intake as well as close follow-up with her PCP. She is advised on concerning symptoms to return for. Departure - Departure Disposition: 01 Home, Self Care Clinical Impression: Palpitations, Hypokalemia Condition: Stable Instructions: ED Potassium Deficiency, ED Palpitations Comments: Your heart appears to be in a normal rhythm right now. It is unclear what was causing the irregular feeling you are having earlier today. However on your lab s we did note that your potassium was slightly low and you did appear to be dehydrated. We have given you IV fluids and potassium replacement. Please continue to stay hydrated and eat well over the next several days and make sure you have close follow-up with your PCP as scheduled on . If you develop any recurrent or worsening symptoms such as chest pain, dizziness, difficulty breathing or have any new concerns please return to the emergency department. Discharge Date/Time: 11/18/22 22:03
[2022-11-18 21:56] VITALS: BP 110/55
== END 2022-11-18 22:03 | disposition home or self-care (01) ==
LOC: ED 19:34
DX: R00.2 Palpitations (principal); E87.6 Hypokalemia
CPT/HCPCS: 36415; 71045; 80053; 83690; 84443; 84484; 85025; 93005; 99284; A9270

== ENCOUNTER 2022-11-21 03:19 | Emergency (ER) | payer BC ==
[2022-11-21 03:50] VITALS: BP 152/84
[2022-11-21 03:52] LABS: BASOPHILS % (AUTO) 0.6 %; EOSINOPHILS # (AUTO) 0.1 10^3/uL (0.0-0.7); EOSINOPHILS % (AUTO) 1.9 %; HCT - HEMATOCRIT 43.3 % (37.0-47.0); HGB - HEMOGLOBIN 14.1 g/dL (12.0-16.0); LYMPHOCYTES # (AUTO) 2.5 10^3/uL (1.5-3.5); LYMPHOCYTES % (AUTO) 40.8 %; MEAN CORPUSCULAR HEMOGLOBIN 27.7 pg (27.0-31.0); MEAN CORPUSCULAR HGB CONC 32.6 g/dL (32.0-36.0); MEAN CORPUSCULAR VOLUME 85.1 fL (81.0-99.0); MEAN PLATELET VOLUME 9.1 fL (7.9-10.8); MONOCYTES # (AUTO) 0.5 10^3/uL (0.0-1.0); MONOCYTES % (AUTO) 7.5 %; NEUTROPHILS % (AUTO) 48.9 %; PLT - PLATELET COUNT 375 10^3/uL (130-450); RED BLOOD COUNT 5.09 10^6/uL (4.20-5.40); RED CELL DISTRIBUTION WIDTH 14.6 % (12.0-15.0); WHITE BLOOD COUNT 6.2 x10^3/uL (4.8-10.8)
[2022-11-21 04:09] LABS: ALBUMIN 4.4 g/dL (3.2-5.5); BILIRUBIN,TOTAL 0.8 mg/dL (0.2-1.0); CALCIUM 9.7 mg/dL (8.5-10.3); CREATININE 0.8 mg/dL (0.4-1.0); POTASSIUM 3.6 mmol/L (3.5-5.0); TOTAL PROTEIN 8.8 g/dL (6.7-8.2)
--- NOTE | 2022-11-21 07:50 | XRAY Report ---
PROCEDURE: Chest 1 View X-Ray INDICATIONS: Chest pain TECHNIQUE: One view of the chest was acquired. COMPARISON: None. FINDINGS: Surgical changes and devices: None. Lungs and pleura: No pleural effusions or pneumothorax. Lungs are clear. Mediastinum: Mediastinal contours appear normal. Heart size is normal. Bones and chest wall: No suspicious bony lesions. Overlying soft tissues appear unremarkable. IMPRESSION: No acute cardiopulmonary process. Findings are concordant with preliminary interpretation provided by [facility]. Reviewed by: Angel Villegas MD on 11/21/2022 7:49 AM PDT Approved by: Angel Villegas MD on 11/21/2022 7:49 AM PDT Station ID: [id number]
== END 2022-11-21 05:19 | disposition left against medical advice (07) ==
LOC: ED 03:19
DX: Z53.21 Procedure and treatment not carried out due to patient leaving prior to being seen by health care provider (principal)
CPT/HCPCS: 36415; 80053; 83690; 84484; 85025; 93005

== ENCOUNTER 2023-05-25 18:22 | Emergency (ER) | payer BC ==
--- NOTE | 2023-05-25 18:55 | XRAY Report ---
PROCEDURE: Chest 1 View X-Ray INDICATIONS: Chest pain TECHNIQUE: One view of the chest was acquired. COMPARISON: 11/21/2022, 11/18/2022 FINDINGS: Surgical changes and devices: Cholecystectomy clips are seen. Lungs and pleura: No pleural effusions or pneumothorax. Lungs are clear. Mediastinum: Mediastinal contours appear normal. Heart size is normal. Bones and chest wall: No suspicious bony lesions. Overlying soft tissues appear unremarkable. IMPRESSION: No acute cardiopulmonary process. Reviewed by: Gabino Hernadez MD on 05/25/2023 5:54 PM [facility] Approved by: Gabino Hernadez MD on 05/25/2023 5:54 PM [facility] Station ID: [id number]
[2023-05-25 18:59] LABS: BASOPHILS % (AUTO) 0.6 %; EOSINOPHILS # (AUTO) 0.1 10^3/uL (0.0-0.7); EOSINOPHILS % (AUTO) 1.3 %; HCT - HEMATOCRIT 40.6 % (37.0-47.0); HGB - HEMOGLOBIN 13.2 g/dL (12.0-16.0); LYMPHOCYTES # (AUTO) 3.5 10^3/uL (1.5-3.5); LYMPHOCYTES % (AUTO) 50.2 %; MEAN CORPUSCULAR HEMOGLOBIN 28.1 pg (27.0-31.0); MEAN CORPUSCULAR HGB CONC 32.5 g/dL (32.0-36.0); MEAN CORPUSCULAR VOLUME 86.4 fL (81.0-99.0); MEAN PLATELET VOLUME 9.2 fL (7.9-10.8); MONOCYTES # (AUTO) 0.5 10^3/uL (0.0-1.0); MONOCYTES % (AUTO) 6.9 %; NEUTROPHILS # (AUTO) 2.8 10^3/uL (1.5-6.6); NEUTROPHILS % (AUTO) 40.9 %; PLT - PLATELET COUNT 334 10^3/uL (130-450); RED CELL DISTRIBUTION WIDTH 14.2 % (12.0-15.0); WHITE BLOOD COUNT 6.9 x10^3/uL (4.8-10.8)
[2023-05-25 19:14] LABS: ALBUMIN 4.5 g/dL (3.2-5.5); ALBUMIN/GLOBULIN RATIO 1.3 (1.0-2.2); BILIRUBIN,TOTAL 0.5 mg/dL (0.2-1.0); CALCIUM 9.6 mg/dL (8.5-10.3); CREATININE 0.7 mg/dL (0.6-1.3); POTASSIUM 3.5 mmol/L (3.5-4.5); TOTAL PROTEIN 7.9 g/dL (6.4-8.9)
[2023-05-25 19:35] LABS: TROPONIN I HIGH SENSITIVITY 2.3 ng/L (2.3-14.8)
--- NOTE | 2023-05-25 19:50 | ED Physician Documentation ---
History of Present Illness - Stated complaint Stated Complaint: CHEST PX/BURNING - Chief complaint Chief Complaint: Cardiac - History obtained from History obtained from: Patient - History of Present Illness Timing: Today Pain level max: 3 Pain level now: 0 - Additonal information Additional information: 62-year-old female presents to the emergency department with chest pain. Last for 30 seconds to 45 seconds at a time described as burning on the right side of the chest. Happens once every few hours. Has been going on since about noon today, this was about 7 hours prior to arrival. No change with exertion, inspiration. No change with eating or drinking. Took omeprazole without relief. Has had an appendectomy, cholecystectomy in the past. No cough. No congestion. No fevers. She is scheduled for cardiac CT next month. 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: None : None HEENT: None Psych: Anxiety Musculoskeletal: Fibromyalgia, Chronic back pain Derm: None - Past Surgical History Past Surgical History: Yes General: Cholecystectomy, Appendectomy /[employer]NAG[employer]: Tubal ligation, Other - Present Medications Home Medications: Ambulatory Orders Medication Instructions Recorded Confirmed Olmesartan Medoxomil [Benicar] 20 mg PO DAILY 06/14/22 06/14/22 - Allergies Allergies/Adverse Reactions: Allergies Allergy/AdvReac Type Severity Reaction Status Date / Time hydrocodone bitartrate * Allergy Unknown Verified 05/25/23 18:35 [From Vicodin] - Social History Does the pt smoke?: No Smoking Status: Never smoker Does the pt drink ETOH?: Yes ETOH Use: Wine Does the pt have substance abuse?: No - Immunizations Immunizations are current?: Yes - POLST Patient has POLST: No PD ED PE NORMAL - Vitals Vital signs reviewed: Yes - General General: Alert and oriented X 3, No acute distress - HEENT HEENT: PERRL, Moist mucous membranes - Neck Neck: Supple, no meningeal sign - Cardiac Cardiac: RRR, Strong equal pulses - Respiratory Respiratory: No respiratory distress, Clear bilaterally - Abdomen Abdomen: Soft, Non tender, Non distended - Back Back: No CVA TTP, No spinal TTP - Derm Derm: Warm and dry - Extremities Extremities: No edema, No calf tenderness / cord - Neuro Neuro: Alert and oriented X 3 - Psych Psych: Normal mood, Normal affect Results - Vitals Vitals: Vital Signs - 24 hr 05/25/23 05/25/23 05/25/23 18:26 19:34 20:21 Temperature 36.5 C Heart Rate 74 69 63 Respiratory 18 17 15 Rate Blood Pressure 170/83 H 157/87 H 134/60 H O2 Saturation 99 98 98 Oxygen O2 Source Room air - EKG (time done) 1829 EKG releavant findings:: EKG personally interpreted by author of this note. Relevant findings are: Rate: Rate (enter#) (59) Rhythm: NSR Jensen: Normal Intervals: Normal UT QRS: Normal Ischemia: Normal ST segments - Labs Labs: Laboratory Tests 05/25/23 05/25/23 18:55 18:55 WBC 6.9 RBC 4.70 Hgb 13.2 Hct 40.6 MCV 86.4 MCH 28.1 MCHC 32.5 RDW 14.2 Plt Count 334 MPV 9.2 Neut # (Auto) 2.8 Lymph # (Auto) 3.5 Johnston # (Auto) 0.5 Eos # (Auto) 0.1 Baso # (Auto) 0.0 Absolute Nucleated RBC 0.00 Nucleated RBC % 0.0 Sodium 136 Potassium 3.5 Chloride 102 Carbon Dioxide 24 Anion Gap 10.0 BUN 12 Creatinine 0.7 Estimated GFR (MDRD) 102 Glucose 94 Calcium 9.6 Total Bilirubin 0.5 AST 17 ALT 8 L Alkaline Phosphatase 78 Troponin I High Sens 2.3 Total Protein 7.9 Albumin 4.5 Globulin 3.4 Albumin/Globulin Ratio 1.3 Lipase 17 PD Medical Decision Making - ED course Complexity details: reviewed results, re-evaluated patient, considered sudha das, d/w patient, d/w family ED course: 62-year-old female with atypical chest pain. No acute findings on chest x-ray, EKG. Negative high-sensitivity troponin after greater than 7 hours of symptoms. No evidence of PE. Symptoms last for few seconds at a time, never more than a minute. Not consistent with acute coronary syndrome, PE or aortic dissection. Patient asymptomatic here. No acute findings on telemetry. Will have her follow-up with her doctor for further care. Patient counseled regarding signs and symptoms for which I believe and urgent re-evaluation would be necessary. Patient with good understanding of and agreement to plan and is comfortable going home at this time This document was made in part using voice recognition software. While efforts are made to proofread this document, sound alike and grammatical errors may occur. Departure - Departure Disposition: Home, Self Care Clinical Impression: Chest pain Qualifiers: Chest pain type: unspecified Qualified Code(s): R07.9 - Chest pain, unspecified Condition: Good Instructions: ED Chest Pain Atypical Unkn Cause Follow-Up: Shahnaz Perea MD [Primary Care Provider] - Within 1 week Comments: Please follow-up with your doctor for further care. Continue current medications at home. Your EKG, chest x-ray and laboratory testing including a high-sensitivity troponin are all negative today. This does not appear to be cardiac related at this time. Forms: PCP List Discharge Date/Time: 05/25/23 20:21
[2023-05-25 20:08] VITALS: O2SAT 98
[2023-05-25 20:26] VITALS: BP 134/60
== END 2023-05-25 20:21 | disposition home or self-care (01) ==
LOC: ED 18:22
DX: R07.9 Chest pain, unspecified (principal)
CPT/HCPCS: 36415; 80053; 83690; 84484; 85025; 93005; 99283; 99284